=== PATIENT | female | born 1950 ===

== ENCOUNTER 2023-01-24 12:16 | Inpatient (IN) | payer MEDICARE, BC, SELFPAY ==
[2023-01-24 12:30] VITALS: BP 126/89; PULSE 96; RESP 18; TEMP 36.4; O2SAT 98
--- NOTE | 2023-01-24 13:30 | P.HPPS_ITS ---
[facility] Date of Service: 01/24/23 Chief Complaint: F32.9,F41.9 Sources of Information: patient interviewed, chart reviewed and crisis/core team assessment reviewed HPI Subjective Notes: Juarez Warning and Conditional Voluntary Narrative: The patient is a 72-year-old female, , mother of 2 adult children, currently living with her daughter for the last months, retired [employer], with no prior formal psychiatric history referred from the emergency room of [facility] for continuation of care. The patient was rushed to the emergency room since she complained of suicidal ideation by either overdosing or hurting herself with a knife. She was assessed by the crisis team and it seems that she had being in the emergency room at least 3 times in the last month due to home anxiety and dysphoria. She was being medically cleared and transferring to this facility for continuation of treatment. On interview, the patient reported that she have been having conflicts with his daughter, she had been living with her for the last month that she was referred from the emergency room. She is living with her daughter because the last time she was in the emergency room with suicidal ideation and her daughter decided to take her back to her home. She had been complaining of depressed mood, anhedonia, lack of energy, feelings of hopelessness, increased anxiety, crying spells and recently passive suicidal ideation without a clear plan. She adamantly denies mood lability or psychotic symptoms. She has been treated with Remeron and recently with Lexapro but she is unclear when she started taking medications. Apparently, the recent stressor is the conflicts with her daughter, conflicts with her spouse, she stated that her marriage has she has been finished. She feels that she is a burden to her family and she wants to finish it. She reported that she has never been admitted into the hospital and she does not follow psychiatric treatment as an outpatient. Her primary care physician had been feeling some of her medications such as Remeron and Lexapro as per med rec. She has been taking Valium 10 mg p.o. q.h.s. for years. She stated that she stop taking Valium for the last week or so. No evidence of benzodiazepine withdrawal 1 or safety concerns at this moment. The patient was able to contract for safety in the facility, she is open to give us permission to talk with her daughter. Past Psychiatric History: Denies prior psychiatric admissions Medical Evaluation Reviewed: Hospitalist Alicia Pending [facility] Family History: Denies Social History: The patient reported that she was , mother of 2 adult children, she used to work, retired employee of the [employer]. Currently she is living with her daughter. Good social support Substance History: Denies Trauma History: Reports conflict with her Meds/Allergies Allergies Allergies Allergy/AdvReac Type Severity Reaction Status Date / Time poly antibiotics Allergy Unknown Uncoded 07/09/13 00:00 Mental Status Exam Mental Status Exam Patient Appearance: Well Grooomed and Appropriate (On hospital gowns) Patient Orientation: Person and Situation Level of Consciousness: Awake and Appropriate Patient Behavior: Guarded and Passive Mood Description: Withdrawn and Depressed Affect Description: Constricted Patient Cognition Impaired: Yes Ability to Follow Directions: Good Speech Pattern: Clear Hallucinations: None Delusions: Not Present Thought Process: Linear Thought Content: positive for Circumstantial Depressive Symptoms: Diff. Making Decisions, Changes in Appetite, Crying Spells, Significant Weight Loss and Feelings of Worthlessness Judgement: Poor Assessment & Plan Assessment & Plan (1) Major depressive disorder: Status: Acute Code(s): F32.9 - Major depressive disorder, single episode, unspecified Plan The patient is an elderly female with a past history of depression, with 3 recent admissions into the emergency room in the last month for exacerbation of depression and suicidality. She has several family stressors such as living with her daughter for the last month, most likely complex with her who she states is . She complains of depressive symptoms with neurovegetative component and recently with suicidal ideation. She is able to contract for safety in the facility. She denies psychotic symptoms. Plan 1. Gather collateral information. 2. The patient understood juarez warning and she signed conditional voluntary. 3. 5 minutes check for the next 24 hours. 4. Continue with Remeron 15 mg p.o. q.h.s. and restarted Valium 5 mg p.o. q.h.s.. 4. Consult hospitalist for medical clearance. 6. Regular blood work for tomorrow morning. 7. Reassessment with results. Patient educated on: diagnosis and therapeutic strategies Reason for continued inpatient stay Substantial Risk for: inability to function, rapid decompensation and med/psych decompensation Statement Statement: I have reviewed the history and physical and performed a pertinent examination on my patient. No changes have occurred unless specified. If the History and Physical was not performed prior to admission, the Hospitalist's service will be consulted for completing the admission physical. Time Spent With Patient Time: Total time managing care of this patient today __45__ minutes.
[2023-01-24 14:14] VITALS: BMI 19.4
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
--- NOTE | 2023-01-24 17:51 | PC.NURSE ---
Sana ate 100% of lunch and dinner and drank 720cc today.
[2023-01-24 18:00] VITALS: BP 120/92; PULSE 70; RESP 16; TEMP 35.9; O2SAT 97
--- NOTE | 2023-01-24 20:27 | P.CONHOSP_ITS ---
History of Present Illness Data of Consult Service Date: 01/24/23 Primary Care Provider: None Physician HPI Reason for consult: Admission H&P Pt is a 72-year-old female with a PMH significant for?migraines, spinal salome nosis, basal cell carcinoma, breast cancer, paroxysmal AFib s/p DCCV, hx of AVNRT s/p ablation, and dementia who is admitted to [facility] for increasing anxiety and depression with SI by either stabbing self with knife for over week dosing on medications. Medical consult for admission H&P. ?Patient has no acute medical complaints at this time. Only claims of being ?bored.? Denies chest pain/pressure palpitations. No shortness of breath. Denies fever, chills, nausea, vomiting, abdominal pain. CMP reviewed, unremarkable. Review of Systems Review of Systems: Patient has no acute medical complaints at this time Yes all other systems are reviewed and are negative PMFSH Social History Household Members: Children Household Members Other:: Daughter and 2 children and her significant other. Housing: House Do you presently have visiting nurse or other home services: No Patient Tobacco Use Status: Former Tobacco user Quit Date: 1977 Tobacco use type: Cigarette Cigarettes Per Day: 2 Years Smoked: 5 years Smoked in Last 30 Days: No e-Cigarette/Vaping Use: Never Used Patient Interested in Nicotine Replacement: No Patient Given Instructions on How to Stop Smoking: No Second Hand Smoke Exposure: No Use of substances other than those prescribed or required for medical reasons: No Currently Displaying Signs/Symptoms of Drug Intoxication Withdrawal: No Any prior treatment program specific to substance use: No Have you been hit, kicked, punched, or otherwise hurt by someone within the past year? If so, by whom?: No Do you feel safe in your current relationship?: Yes Is there a partner from a previous relationship who is making you feel unsafe now?: No Are you made to feel afraid or neglected: No Druze Healthcare Practices: Patient reads her bible. She is a Faith. Cultural Healthcare Practices: Yoga and Chuy, speed walking. Advance Directives: No Advance Directives Information Provided: No Do you have thoughts of harming others: None Do you have a plan to hurt others: No Plan Recently lost weight without trying: Yes How much weight loss: 14-23 pounds Eating poorly because of decreased appetite: Yes Nutrition screen score: 5 Nutrition Risks: Poor intake 0-25% >4 days Patient : No : No Poor oral hygiene: No Meds Allergies Allergy/AdvReac Type Severity Reaction Status Date / Time poly antibiotics Allergy Unknown Uncoded 07/09/13 00:00 Active Medications: Current Medications Acetaminophen (Acetaminophen 325 Mg Tablet) 650 mg PO Q6H PRN PRN Reason: Headache/Pain Mild Scale (1-3) Al Hydroxide/Mg Hydroxide (Magnesium Hydrox/Alum Hydrox 30 Ml Oral.Susp) 30 ml PO Q6H PRN PRN Reason: Heartburn/Nausea Diazepam (Diazepam 5 Mg Tablet) 5 mg PO BEDTIME SIMIN Flecainide Acetate (Flecainide Acetate 50 Mg Tablet) 50 mg PO BID SIMIN Hydroxyzine HCl (Hydroxyzine Hcl 25 Mg Tablet) 25 mg PO Q6H PRN PRN Reason: Anxiety Magnesium Hydroxide (Milk Of Magnesia 30 Ml Oral.Susp) 30 ml PO DAILY PRN PRN Reason: Constipation Metoprolol Tartrate (Metoprolol Tartrate 25 Mg Tablet) 25 mg PO BID SIMIN; Protocol Mirtazapine (Mirtazapine 15 Mg Tablet) 15 mg PO BEDTIME SIMIN Olanzapine (Olanzapine 5 Mg Tablet) 5 mg PO BEDTIME SIMIN Trazodone HCl (Trazodone Hcl 50 Mg Tablet) 50 mg PO BEDTIME MRX1 PRN PRN Reason: Insomnia Home Medications Medication Instructions Recorded Confirmed Last Taken Type Eliquis 5 mg PO BID blood thinner 01/24/23 01/24/23 Unknown History diazepam 10 mg PO BEDTIME anxiety 01/24/23 01/24/23 Unknown History escitalopram oxalate 20 mg PO DAILY Depression 01/24/23 01/24/23 Unknown History flecainide 50 mg PO Q12H A Fib 01/24/23 01/24/23 Unknown History metoprolol tartrate 12.5 mg PO BID A Fib 01/24/23 01/24/23 Unknown History trazodone 50 mg PO BEDTIME anxiety 01/24/23 01/24/23 Unknown History Physical Exam Vital Signs and Narrative: Vital Signs: Last Vital Signs Temp 97.5 F 01/24/23 12:30 Pulse 96 01/24/23 12:30 Resp 18 01/24/23 12:30 BP 126/89 01/24/23 12:30 Pulse Ox 98 01/24/23 12:30 O2 Del Method Room Air 01/24/23 12:30 BMI result Body Mass Index 19.4 General: AOx3, no acute distress Resp: CTA bilaterally CVS: Irregularly irregular rhythm GI: +BS, NT, no distention Skin: No rash Neuro: Cranial nerves II-XII grossly intact bilaterally. Motor grossly intact bilaterally Extremities: No edema Psych: Appropriate affect Results Labs 01/25/23 07:21 Assessment and Plan (1) Routine history and physical examination of adult: Status: Acute Plan Pt is a 72-year-old female with a PMH significant for?migraines, spinal stenosis, basal cell carcinoma, breast cancer, paroxysmal AFib s/p DCCV, hx of AVNRT s/p ablation, and dementia who is admitted to [facility] for increasing anxiety and depression with SI by either stabbing self with knife for over week dosing on medications. Medical consult for admission H&P. ?Patient has no acute medical complaints at this time. Mood disorder Plan as per Psychiatry Persistent atrial fibrillation Continue Eliquis, metoprolol Hx of AVNRT S/P ablation Continue diltiazem, flecainide Thank you for allowing us to participate in the care of this patient. Signing off at this time. Please let us know if there are any acute complaints or questions. Time Spent With Patient Time: Total time managing care of this patient today ____ minutes.
--- NOTE | 2023-01-24 21:06 | PM.EVENT ---
Event Note Date of Service: 01/24/23 Event Note: Attempted to see pt for admission H&P shortly after 8:00pm but pt sleeping and would prefer to defer H&P until the next day. Will attempt see pt for H&P in tomorrow. Time Spent With Patient Time: Total time managing care of this patient today ____ minutes.
[2023-01-24] MEDS: OLANZapine 5 MG TABLET PO (21:25)
[2023-01-24] MEDS: Metoprolol Tartrate 25 MG TABLET PO (21:25)
[2023-01-24] MEDS: Mirtazapine 15 MG TABLET PO (21:25)
[2023-01-24] MEDS: diazePAM 5 MG TABLET PO (21:25)
[2023-01-24] MEDS: Flecainide Acetate 50 MG TABLET PO (21:26)
[2023-01-24] MEDS: traZODone HCL 50 MG TABLET PO (23:37)
[2023-01-24] MEDS: hydrOXYzine HCL 25 MG TABLET PO (23:38)
[2023-01-25 07:48] LABS: Alanine Aminotransferase 20 U/L (0-31); Albumin Level 3.7 g/dL (3.5-5.0); Alkaline Phosphatase 76 U/L (39-117); Anion Gap 12 (12-20); Aspartate Amino Transferase 20 U/L (5-31); Bilirubin Total 0.5 mg/dL (0.0-1.0); Blood Urea Nitrogen 21 mg/dL (9-16); Calcium 9.3 mg/dL (8.4-10.2); Carbon Dioxide 28 mmol/L (22-29); Chloride 105 mmol/L (96-108); Cholesterol 152 mg/dL; Creatinine Clr Calc Pharmacy 44.2; Estimated Glomerular Filt Rate > 60; Glucose Fasting 119 mg/dL (60-99); HDL Cholesterol 39 mg/dL; LDL Cholesterol Calculated 95 mg/dl; Potassium 4.7 mmol/L (3.3-5.1); Sodium 140 mmol/L (135-145); Total Protein 6.5 g/dL (6.5-8.0); Triglycerides 90 mg/dL
[2023-01-25 08:00] VITALS: BP 112/70; PULSE 67; RESP 18; TEMP 36.8; O2SAT 96
[2023-01-25] MEDS: Flecainide Acetate 50 MG TABLET PO ×2 (08:01→21:05)
[2023-01-25] MEDS: Metoprolol Tartrate 25 MG TABLET PO ×2 (08:01→21:05)
--- NOTE | 2023-01-25 08:23 | HO.PSYCHPN ---
Subjective Subjective Date of Service: 01/25/23 Reason For Visit: F32.9,F41.9 Subjective Notes: Conditional Voluntary Interim History: The nursing staff reported the patient has been fairly well on admission but later on in the afternoon she was confused, stating that her roommate was her sister. On interview the patient was pleasant, dysphoric we discussed options and she agreed increase Remeron up to 30 mg p.o. q.h.s.. She stated that she had a psychotic break last month, most likely due to several medications prescribed before. Mental Status Exam Mental Status Exam Patient Appearance: Well Grooomed Patient Orientation: Person and Situation Level of Consciousness: Awake and Appropriate Patient Behavior: Guarded and Passive Mood Description: Calm Affect Description: Constricted Patient Cognition Impaired: Yes Ability to Follow Directions: Good Speech Pattern: Clear Hallucinations: None Delusions: Not Present Thought Process: Distracted and Linear Thought Content: positive for [place] and positive for Circumstantial Judgement: Fair Diagnostics Vital Signs (24Hr): Vital Signs - 24 hr 01/24/23 12:30 01/24/23 18:00 01/25/23 08:00 Temperature 97.5 F 96.6 F L 98.3 F Pulse Rate 96 70 67 Respiratory Rate 18 16 18 Blood Pressure 126/89 120/92 H 112/70 Pulse Oximetry 98 97 96 Oxygen Delivery Method Room Air Room Air Room Air BMI result Body Mass Index 19.4 Labs 01/25/23 07:21 Labs: Laboratory Results - last 48 hr 01/25/23 07:21 Sodium 140 Potassium 4.7 Chloride 105 Carbon Dioxide 28 Anion Gap 12 BUN 21 H Creatinine 0.85 Estim Creat Clear Calc 44.2 Estimated GFR > 60 Fasting Glucose 119 H Calcium 9.3 Total Bilirubin 0.5 AST 20 ALT 20 Alkaline Phosphatase 76 Total Protein 6.5 Albumin 3.7 Triglycerides 90 Cholesterol 152 LDL Cholesterol, Calc 95 HDL Cholesterol 39 Medications Medications Current Medications Acetaminophen (Acetaminophen 325 Mg Tablet) 650 mg PO Q6H PRN PRN Reason: Headache/Pain Mild Scale (1-3) Al Hydroxide/Mg Hydroxide (Magnesium Hydrox/Alum Hydrox 30 Ml Oral.Susp) 30 ml PO Q6H PRN PRN Reason: Heartburn/Nausea Diazepam (Diazepam 5 Mg Tablet) 5 mg PO BEDTIME SIMIN Last Admin: 01/24/23 21:25 Dose: 5 mg Flecainide Acetate (Flecainide Acetate 50 Mg Tablet) 50 mg PO BID SIMIN Last Admin: 01/25/23 08:01 Dose: 50 mg Hydroxyzine HCl (Hydroxyzine Hcl 25 Mg Tablet) 25 mg PO Q6H PRN PRN Reason: Anxiety Last Admin: 01/24/23 23:38 Dose: 25 mg Magnesium Hydroxide (Milk Of Magnesia 30 Ml Oral.Susp) 30 ml PO DAILY PRN PRN Reason: Constipation Metoprolol Tartrate (Metoprolol Tartrate 25 Mg Tablet) 25 mg PO BID [facility]; Protocol Last Admin: 01/25/23 08:01 Dose: 25 mg Mirtazapine (Mirtazapine 15 Mg Tablet) 15 mg PO BEDTIME SIMIN Last Admin: 01/24/23 21:25 Dose: 15 mg Non-Formulary Medication (Eliquis) 5 mg PO BID SIMIN Olanzapine (Olanzapine 5 Mg Tablet) 5 mg PO BEDTIME SIMIN Last Admin: 01/24/23 21:25 Dose: 5 mg Trazodone HCl (Trazodone Hcl 50 Mg Tablet) 50 mg PO BEDTIME MRX1 PRN PRN Reason: Insomnia Last Admin: 01/24/23 23:37 Dose: 50 mg Allergies Allergies Allergy/AdvReac Type Severity Reaction Status Date / Time poly antibiotics Allergy Unknown Uncoded 07/09/13 00:00 Assessment & Plan Assessment & Plan (1) Major depressive disorder: Status: Acute Code(s): F32.9 - Major depressive disorder, single episode, unspecified Plan The patient is an elderly female with a past history of depression, with 3 recent admissions into the emergency room in the last month for exacerbation of depression and suicidality. She has several family stressors such as living with her daughter for the last month, most likely complex with her who she states is . She complains of depressive symptoms with neurovegetative component and recently with suicidal ideation. She is able to contract for safety in the facility. She denies psychotic symptoms. Plan 1. Gather collateral information. 2. The patient understood mcleod warning and she signed conditional voluntary. 3. 5 minutes check for the next 24 hours. 4. Continue with Remeron 15 mg p.o. q.h.s, we increase Remeron up to 30 mg p.o. q.h.s. on was 12. 5. Keep Valium 5 mg p.o. q.h.s.. 6. Consult hospitalist for medical clearance. 7. Regular blood work for tomorrow morning. 8. Reassessment with results. Reason for continued inpatient stay Substantial Risk for: inability to function, rapid decompensation and med/psych decompensation Time Spent With Patient Time: Total time managing care of this patient today _20___ minutes.
[2023-01-25] MEDS: Apixaban 5 MG TABLET PO ×2 (09:18→21:05)
[2023-01-25 18:00] VITALS: BP 135/89; PULSE 74; RESP 16; TEMP 36.1; O2SAT 99
[2023-01-25] MEDS: Mirtazapine 30 MG TABLET PO (21:04)
[2023-01-25] MEDS: traZODone HCL 50 MG TABLET PO (21:04)
[2023-01-25] MEDS: diazePAM 5 MG TABLET PO (21:04)
[2023-01-25] MEDS: OLANZapine 5 MG TABLET PO (21:04)
[2023-01-25] MEDS: hydrOXYzine HCL 25 MG TABLET PO (21:05)
[2023-01-26 07:56] VITALS: BP 133/81; PULSE 73; RESP 16; TEMP 36.6; O2SAT 98
[2023-01-26] MEDS: Metoprolol Tartrate 25 MG TABLET PO ×2 (07:59→21:54)
[2023-01-26] MEDS: Flecainide Acetate 50 MG TABLET PO ×2 (07:59→21:54)
[2023-01-26] MEDS: Apixaban 5 MG TABLET PO ×2 (07:59→21:54)
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
[2023-01-26] MEDS: polyethylene glycoL 3350 17 GM POWD.PACK PO (16:49)
[2023-01-26 18:00] VITALS: BP 114/80; PULSE 88; RESP 16; TEMP 36.9; O2SAT 97
[2023-01-26] MEDS: OLANZapine 5 MG TABLET PO (21:53)
[2023-01-26] MEDS: diazePAM 5 MG TABLET PO (21:53)
[2023-01-26] MEDS: traZODone HCL 50 MG TABLET PO (21:54)
[2023-01-26] MEDS: Mirtazapine 30 MG TABLET PO (21:54)
[2023-01-27 08:53] VITALS: BP 115/78; PULSE 85; RESP 16; TEMP 37; O2SAT 98
[2023-01-27] MEDS: Apixaban 5 MG TABLET PO ×2 (08:54→20:36)
[2023-01-27] MEDS: Metoprolol Tartrate 25 MG TABLET PO ×2 (08:54→20:36)
[2023-01-27] MEDS: Flecainide Acetate 50 MG TABLET PO ×2 (08:54→20:37)
--- NOTE | 2023-01-27 14:26 | HO.PSYCHPN ---
Subjective Subjective Date of Service: 01/27/23 Reason For Visit: F32.9,F41.9 Subjective Notes: Conditional Voluntary and 3 Day Interim History: The nursing staff reported the patient signed a 3 day notice last Friday. She stated that she was feeling worse with anxiety and she declined p.r.n. medications. She feels abandoned by her family. Yesterday her son visited her. On interview the patient is still dysphoric but she adamantly denies active suicidal ideation. She is aware that she has problems with her daughter and she wants to go with her sister. According to the social studies department chair, her daughter contact her and apparently her healthcare proxy was invoked at the other facility. We were not aware of that. In my opinion, the patient has capacity to take informed decisions. Mental Status Exam Mental Status Exam Patient Appearance: Well Grooomed and Appropriate Patient Orientation: Person and Situation Level of Consciousness: Awake and Appropriate Patient Behavior: Guarded and Passive Mood Description: Withdrawn Affect Description: Constricted Ability to Follow Directions: Good Speech Pattern: Clear Hallucinations: None Delusions: Not Present Thought Process: Distracted and Linear Thought Content: positive for [place] and positive for Circumstantial Judgement: Fair Diagnostics Vital Signs (24Hr): Vital Signs - 24 hr 01/26/23 18:00 01/27/23 08:53 Temperature 98.4 F 98.6 F Pulse Rate 88 85 Respiratory Rate 16 16 Blood Pressure 114/80 115/78 Pulse Oximetry 97 98 Oxygen Delivery Method Room Air Room Air BMI result Body Mass Index 19.4 Labs 01/25/23 07:21 Medications Medications Current Medications Acetaminophen (Acetaminophen 325 Mg Tablet) 650 mg PO Q6H PRN PRN Reason: Headache/Pain Mild Scale (1-3) Al Hydroxide/Mg Hydroxide (Magnesium Hydrox/Alum Hydrox 30 Ml Oral.Susp) 30 ml PO Q6H PRN PRN Reason: Heartburn/Nausea Apixaban (Apixaban 5 Mg Tablet) 5 mg PO BID [facility] Last Admin: 01/27/23 08:54 Dose: 5 mg Diazepam (Diazepam 5 Mg Tablet) 5 mg PO BEDTIME [facility] Last Admin: 01/26/23 21:53 Dose: 5 mg Flecainide Acetate (Flecainide Acetate 50 Mg Tablet) 50 mg PO BID [facility] Last Admin: 01/27/23 08:54 Dose: 50 mg Hydroxyzine HCl (Hydroxyzine Hcl 25 Mg Tablet) 25 mg PO Q6H PRN PRN Reason: Anxiety Last Admin: 01/25/23 21:05 Dose: 25 mg Magnesium Hydroxide (Milk Of Magnesia 30 Ml Oral.Susp) 30 ml PO DAILY PRN PRN Reason: Constipation Metoprolol Tartrate (Metoprolol Tartrate 25 Mg Tablet) 25 mg PO BID [facility]; Protocol Last Admin: 01/27/23 08:54 Dose: 25 mg Mirtazapine (Mirtazapine 30 Mg Tablet) 30 mg PO BEDTIME [facility] Last Admin: 01/26/23 21:54 Dose: 30 mg Olanzapine (Olanzapine 5 Mg Tablet) 5 mg PO BEDTIME [facility] Last Admin: 01/26/23 21:53 Dose: 5 mg Polyethylene Glycol (Polyethylene Glycol 3350 17 Gm Powd.Pack) 17 gm PO DAILY PRN PRN Reason: Constipation Last Admin: 01/26/23 16:49 Dose: 17 gm Trazodone HCl (Trazodone Hcl 50 Mg Tablet) 50 mg PO BEDTIME MRX1 PRN PRN Reason: Insomnia Last Admin: 01/26/23 21:54 Dose: 50 mg Allergies Allergies Allergy/AdvReac Type Severity Reaction Status Date / Time poly antibiotics Allergy Unknown Uncoded 07/09/13 00:00 Assessment & Plan Assessment & Plan (1) Routine history and physical examination of adult: Status: Acute Code(s): Z00.00 - Encounter for general adult medical examination without abnormal findings Plan Pt is a 72-year-old female with a PMH significant for?migraines, spinal stenosis, basal cell carcinoma, breast cancer, paroxysmal AFib s/p DCCV, hx of AVNRT s/p ablation, and dementia who is admitted to [facility] for increasing anxiety and depression with SI by either stabbing self with knife for over week dosing on medications. Medical consult for admission H&P. ?Patient has no acute medical complaints at this time. Mood disorder Plan as per Psychiatry Persistent atrial fibrillation Continue Eliquis, metoprolol Hx of AVNRT S/P ablation Continue diltiazem, flecainide Psychiatry-plan 1. Gather collateral information. We will try to contact her daughter who is very involved in her care. 2. Continue with Remeron 30 mg p.o. q.h.s. to target depression. 3. Continue with regular medications. 4. Fifteen minutes check. Reason for continued inpatient stay Substantial Risk for: inability to function, rapid decompensation and med/psych decompensation Time Spent With Patient Time: Total time managing care of this patient today __20__ minutes.
[2023-01-27 18:00] VITALS: BP 108/58; PULSE 70; RESP 16; TEMP 36.6; O2SAT 98
[2023-01-27] MEDS: Mirtazapine 30 MG TABLET PO (20:35)
[2023-01-27] MEDS: traZODone HCL 50 MG TABLET PO (20:36)
[2023-01-27] MEDS: diazePAM 5 MG TABLET PO (20:37)
[2023-01-27] MEDS: OLANZapine 5 MG TABLET PO (20:38)
[2023-01-28 07:46] VITALS: BP 163/80; PULSE 73; RESP 15; TEMP 36.9; O2SAT 98
[2023-01-28] MEDS: Metoprolol Tartrate 25 MG TABLET PO ×2 (07:47→20:19)
[2023-01-28] MEDS: Flecainide Acetate 50 MG TABLET PO ×2 (07:47→20:19)
[2023-01-28] MEDS: Apixaban 5 MG TABLET PO ×2 (07:47→20:20)
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
[2023-01-28 19:40] VITALS: BP 113/67; PULSE 77; RESP 20; TEMP 36.7; O2SAT 97
[2023-01-28] MEDS: Mirtazapine 30 MG TABLET PO (20:19)
[2023-01-28] MEDS: Donepezil HCl 5 MG TABLET PO (20:19)
[2023-01-28] MEDS: OLANZapine 5 MG TABLET PO (20:19)
[2023-01-28] MEDS: diazePAM 5 MG TABLET PO (20:19)
[2023-01-29 08:05] VITALS: BP 114/68; PULSE 73; RESP 18; TEMP 36.1; O2SAT 100
[2023-01-29] MEDS: Apixaban 5 MG TABLET PO ×2 (08:42→20:32)
[2023-01-29] MEDS: Flecainide Acetate 50 MG TABLET PO ×2 (08:42→20:33)
[2023-01-29] MEDS: Metoprolol Tartrate 25 MG TABLET PO ×2 (08:42→20:33)
--- NOTE | 2023-01-29 14:22 | P.PNPSI_ITS ---
Subjective Subjective Date of Service: 01/29/23 Reason For Visit: F32.9,F41.9 Subjective Notes: Conditional Voluntary and 3 Day Interim History: The nursing staff reported the patient had been compliant with medications, she denies suicidal ideation. She was assessed also by the child welfare social worker and she adamantly denies suicidal ideation. Today we had a family meeting with her daughter, and sister and they were very concerned. I explained her that over the hospitalization she did not have episodes of delirium or psychosis and she was mostly depressed and agreed to increased Remeron. Discharge planning was discussed. On interview the patient adamantly denies suicidality and she is able to contract for safety. Mental Status Exam Mental Status Exam Patient Appearance: Well Grooomed and Appropriate Patient Orientation: Person and Situation Level of Consciousness: Awake and Appropriate Patient Behavior: Guarded and Passive Mood Description: Calm Affect Description: Constricted Patient Cognition Impaired: Yes Ability to Follow Directions: Good Speech Pattern: Clear Hallucinations: None Delusions: Not Present Thought Process: Linear Thought Content: positive for Goal Oriented Judgement: Fair Diagnostics Vital Signs (24Hr): Vital Signs - 24 hr 01/28/23 19:40 01/29/23 08:05 Temperature 98.1 F 96.9 F Pulse Rate 77 73 Respiratory Rate 20 18 Blood Pressure 113/67 114/68 Pulse Oximetry 97 100 Oxygen Delivery Method Room Air Room Air BMI result Body Mass Index 19.4 Labs 01/25/23 07:21 Medications Medications Current Medications Acetaminophen (Acetaminophen 325 Mg Tablet) 650 mg PO Q6H PRN PRN Reason: Headache/Pain Mild Scale (1-3) Al Hydroxide/Mg Hydroxide (Magnesium Hydrox/Alum Hydrox 30 Ml Oral.Susp) 30 ml PO Q6H PRN PRN Reason: Heartburn/Nausea Apixaban (Apixaban 5 Mg Tablet) 5 mg PO BID [facility] Last Admin: 01/29/23 08:42 Dose: 5 mg Diazepam (Diazepam 5 Mg Tablet) 5 mg PO BEDTIME [facility] Last Admin: 01/28/23 20:19 Dose: 5 mg Donepezil HCl (Donepezil Hcl 5 Mg Tablet) 5 mg PO BEDTIME [facility] Last Admin: 01/28/23 20:19 Dose: 5 mg Flecainide Acetate (Flecainide Acetate 50 Mg Tablet) 50 mg PO BID [facility] Last Admin: 01/29/23 08:42 Dose: 50 mg Hydroxyzine HCl (Hydroxyzine Hcl 25 Mg Tablet) 25 mg PO Q6H PRN PRN Reason: Anxiety Last Admin: 01/25/23 21:05 Dose: 25 mg Magnesium Hydroxide (Milk Of Magnesia 30 Ml Oral.Susp) 30 ml PO DAILY PRN PRN Reason: Constipation Metoprolol Tartrate (Metoprolol Tartrate 25 Mg Tablet) 25 mg PO BID [facility]; Protocol Last Admin: 01/29/23 08:42 Dose: 25 mg Mirtazapine (Mirtazapine 30 Mg Tablet) 30 mg PO BEDTIME [facility] Last Admin: 01/28/23 20:19 Dose: 30 mg Olanzapine (Olanzapine 5 Mg Tablet) 5 mg PO BEDTIME [facility] Last Admin: 01/28/23 20:19 Dose: 5 mg Polyethylene Glycol (Polyethylene Glycol 3350 17 Gm Powd.Pack) 17 gm PO DAILY PRN PRN Reason: Constipation Last Admin: 01/26/23 16:49 Dose: 17 gm Trazodone HCl (Trazodone Hcl 50 Mg Tablet) 50 mg PO BEDTIME MRX1 PRN PRN Reason: Insomnia Last Admin: 01/27/23 20:36 Dose: 50 mg Allergies Allergies Allergy/AdvReac Type Severity Reaction Status Date / Time poly antibiotics Allergy Unknown Uncoded 07/09/13 00:00 Assessment & Plan Assessment & Plan (1) Routine history and physical examination of adult: Status: Acute Code(s): Z00.00 - Encounter for general adult medical examination without abnormal findings (2) Neurodegenerative cognitive impairment: Status: Acute Code(s): G31.9 - Degenerative disease of nervous system, unspecified (3) Major depressive disorder: Status: Acute Code(s): F32.9 - Major depressive disorder, single episode, unspecified Plan Pt is a 72-year-old female with a PMH significant for?migraines, spinal stenosis, basal cell carcinoma, breast cancer, paroxysmal AFib s/p DCCV, hx of AVNRT s/p ablation, and dementia who is admitted to [facility] for increasing anxiety and depression with SI by either stabbing self with knife for over week dosing on medications. Medical consult for admission H&P. ?Patient has no acute medical complaints at this time. Mood disorder Plan as per Psychiatry Persistent atrial fibrillation Continue Eliquis, metoprolol Hx of AVNRT S/P ablation Continue diltiazem, flecainide Psychiatry-plan 1. Gather collateral information. We will try to contact her daughter who is very involved in her care. 2. Continue with Remeron 30 mg p.o. q.h.s. to target depression. 3. Continue with regular medications. 4. Fifteen minutes check. 5. Start Aricept 5 mg p.o. q.h.s. to target dementia 6. Discharge tomorrow Reason for continued inpatient stay Substantial Risk for: inability to function, rapid decompensation and med/psych decompensation Time Spent With Patient Time: Total time managing care of this patient today __30__ minutes.
--- NOTE | 2023-01-29 14:35 | P.DS_ITS ---
DS: Providers Provider Date of Service: 01/29/23 Date of admission: 01/24/23 12:16 Date of discharge: 01/30/23 Primary care physician: None Physician Consults: 01/24/23 12:33 Consult to Hospitalist Routine Comment: Consulting Provider: Hospitalist Reason For Exam: Direct admission DS: Diagnosis Discharge Diagnosis (1) Routine history and physical examination of adult: Status: Acute (2) Neurodegenerative cognitive impairment: Status: Acute (3) Major depressive disorder: Status: Acute DS: Medications Discharge Medications Home Medications: Home Medications Medication Instructions Recorded Confirmed Eliquis 5 mg PO BID blood thinner 01/24/23 01/24/23 diazepam 10 mg PO BEDTIME anxiety 01/24/23 01/24/23 escitalopram oxalate 20 mg PO DAILY Depression 01/24/23 01/24/23 flecainide 50 mg PO Q12H A Fib 01/24/23 01/24/23 metoprolol tartrate 12.5 mg PO BID A Fib 01/24/23 01/24/23 trazodone 50 mg PO BEDTIME anxiety 01/24/23 01/24/23 Mental Status Exam Mental Status Exam Patient Appearance: Well Grooomed and Appropriate Patient Orientation: Person, Place and Situation Level of Consciousness: Awake and Appropriate Patient Behavior: Guarded and Passive Mood Description: Withdrawn Affect Description: Constricted Patient Cognition Impaired: Yes Ability to Follow Directions: Good Speech Pattern: Clear Hallucinations: None Delusions: Not Present Thought Process: Distracted Thought Content: positive for Circumstantial Judgement: Fair Data Data Completed and Pending Completed studies during hospitalization [Text1]: 01/25/23 07:21 Sodium 140 Potassium 4.7 Chloride 105 Carbon Dioxide 28 Anion Gap 12 BUN 21 H Creatinine 0.85 Estim Creat Clear Calc 44.2 Estimated GFR > 60 Fasting Glucose 119 H Calcium 9.3 Total Bilirubin 0.5 AST 20 ALT 20 Alkaline Phosphatase 76 Total Protein 6.5 Albumin 3.7 Triglycerides 90 Cholesterol 152 LDL Cholesterol, Calc 95 HDL Cholesterol 39 DS: Summary Hospital Course Hospital Course: The patient is a 72-year-old female, , mother of adult children, with a prior history of delirium in December when she was started on Zyprexa, admitted to the emergency room after she disclosed suicidal ideation next survey shell of depressive symptoms in the context of several psychosocial stressors and conflicts with the family. Please see the HPI for further details on admission. On admission, we review her medications, we decided not to continue Lexapro that was already stopped at [facility] and we decided to increase Remeron up to 30 mg p.o. q.h.s.. We kept Zyprexa 5 mg p.o. q.h.s. since the patient had a past recent history of delirium and psychosis in the context of UTI in December this year. While she was in the unit, she did not presented with any episode of sundowning or cognitive impairment. The patient was able to participate in some groups, she was pleasant cooperative and she wanted to leave the hospital as soon as possible so she signed a 3 day notice. We did a family meeting and apparently there were several stressors in the family, there is marital conflict and her wants her back but she wants to divorce. Also, the daughter and her sister reported that in the last month she had been more irritable. We did a cognitive testing while she was in the unit and she scored 20/30 on the [place] and in the [place]ander test 5.0. We decided to start a low dose of Aricept to target dementia. The patient adamantly denies suicidal ideation she was able to contract for safety and we had a family meeting while she compromised to contract for safety and continue treatment as an outpatient. Since there were no active safety concerns she was discharged to the care of her family. Time spent discussing smoking cessation with patient: 3 to 10 minutes Status at Discharge Functional status at discharge: independent ambulation Overall status at discharge: patient is back to baseline Time Spent with Patient Time attestation: Total time managing care of this patient today _30___ minutes. Time spent: Less than 30 minutes Discharge Plan Discharge Anticipated Discharge Date/Time: 01/30/23 14:00 Patient Disposition: Home, Self-Care Discharge Diagnosis: Major depressive disorder recurrent episode Neuro cognitive impairment Referrals: Dr Adams [facility] [Other] - [facility] [Other] - 01/31/23 10:30 am (You are scheduled for tour of day program on 01/31/23 at 10:30am. Once there you will complete application and they will review day program, cost, and admission process. ) [facility] [Other] - 03/12/23 11:00 am (Your first appointment for psychiatry is for 03/12/23 at 11am. The appointment is with Blanquita Rosa NP. You are on waitlist for therapy and request has been made to escalate to agency supervisor instrument repair for sooner appointment.) Discharge Medications: New donepezil 5 mg Tablet 5 mg PO BEDTIME Qty: 30 1RF flecainide 50 mg Tablet 50 mg PO BID Qty: 60 1RF metoprolol tartrate 25 mg Tablet 25 mg PO BID 30 Days Qty: 60 1RF Protocol: Hold for SBP/HR < HOLD for SBP < : 90 HOLD for HR < : 60 diazepam 2 mg Tablet 5 mg PO BEDTIME 30 Days Qty: 30 1RF hydroxyzine HCl 25 mg Tablet 25 mg PO Q6H PRN (Reason: Anxiety) 30 Days Qty: 30 1RF mirtazapine 30 mg Tablet 30 mg PO BEDTIME 30 Days Qty: 30 1RF olanzapine 5 mg Tablet 5 mg PO BEDTIME 30 Days Qty: 30 1RF trazodone 50 mg Tablet 50 mg PO BEDTIME MRX1 PRN (Reason: Insomnia) 30 Days Qty: 30 1RF polyethylene glycol 3350 17 gram Powder In Packet 17 g PO DAILY PRN (Reason: Constipation) 30 Days Qty: 30 1RF donepezil [Aricept] 5 mg tablet 5 mg PO BEDTIME Qty: 30 1RF Eliquis 5 mg tablet 5 mg PO BID Qty: 60 1RF mirtazapine [Remeron] 30 mg tablet 30 mg PO BEDTIME Qty: 30 1RF flecainide 50 mg tablet 50 mg PO Q12H Qty: 60 1RF atenolol 25 mg tablet 25 mg PO BID Qty: 60 1RF hydroxyzine pamoate 25 mg capsule 25 mg PO BID PRN (Reason: anxiety) Qty: 30 1RF olanzapine [Zyprexa] 5 mg tablet 5 mg PO BEDTIME Qty: 30 1RF polyethylene glycol 3350 [Miralax] 17 gram/dose powder 17 g PO DAILY PRN (Reason: constipation) Qty: 119 0RF trazodone 50 mg tablet 50 mg PO BEDTIME PRN (Reason: insomnia) Qty: 30 1RF diazepam [Valium] 5 mg tablet 5 mg PO BEDTIME Qty: 30 1RF Continued Eliquis tablet 5 mg PO BID 30 Days Qty: 60 1RF Discontinued diazepam tablet 10 mg PO BEDTIME trazodone tablet 50 mg PO BEDTIME metoprolol tartrate tablet 12.5 mg PO BID flecainide tablet 50 mg PO Q12H escitalopram oxalate tablet 20 mg PO DAILY Patient Comments: Last picked up from pharmacy in September. Discharge Orders: Discharge Order (Routine); Ordered 01/30/23 Ordered By: Naveen Lane Diet: Advance to usual diet Activity on Discharge: As tolerated Stand Alone Forms: Patient Portal Discharge page Care Plan Goals: Care plan goals achieved in this admission Health Concerns: Continue treatment with primary care physician Plan of Treatment: Continue medication management by outpatient psychiatric provider and psychotherapy Assessment: Elderly female with a past history of delirium in December with neuro cognitive impairment mild and depression admitted for suicidal ideation in the context of several psychosocial stressors. The patient was treated with an increased dose of Remeron, added Aricept for cognition and so far no safety concerns at this moment, ready to be discharged in the community.
[2023-01-29 18:00] VITALS: BP 128/69; PULSE 81; RESP 18; TEMP 36.6; O2SAT 98
[2023-01-29] MEDS: hydrOXYzine HCL 25 MG TABLET PO (20:32)
[2023-01-29] MEDS: OLANZapine 5 MG TABLET PO (20:32)
[2023-01-29] MEDS: diazePAM 5 MG TABLET PO (20:32)
[2023-01-29] MEDS: Donepezil HCl 5 MG TABLET PO (20:33)
[2023-01-29] MEDS: traZODone HCL 50 MG TABLET PO (20:33)
[2023-01-29] MEDS: Mirtazapine 30 MG TABLET PO (20:34)
[2023-01-30 08:11] VITALS: BP 148/64; PULSE 80; RESP 16; TEMP 36.7; O2SAT 99
[2023-01-30] MEDS: Apixaban 5 MG TABLET PO (08:12)
[2023-01-30] MEDS: Metoprolol Tartrate 25 MG TABLET PO (08:12)
[2023-01-30] MEDS: Flecainide Acetate 50 MG TABLET PO (08:12)
== END 2023-01-30 11:15 | disposition home or self-care (01) | DRG 885 ==
PROVIDERS: Admitting Provider Psychiatry & Neurology Psychiatry; Visit Provider Psychiatry & Neurology Psychiatry
DX: F33.9 Major depressive disorder, recurrent, unspecified (principal); I48.19 Other persistent atrial fibrillation; R45.851 Suicidal ideations; F06.70 Mild neurocognitive disorder due to known physiological condition without behavioral disturbance; Z87.891 Personal history of nicotine dependence; Z79.01 Long term (current) use of anticoagulants; Z79.899 Other long term (current) drug therapy
CPT/HCPCS: 36415; 80053; 80061

== ENCOUNTER → 2023-01-24 12:16 | Outpatient (BNV) | payer MEDICARE, BC, SELFPAY | PROVIDERS: Admitting Provider Psychiatry & Neurology Psychiatry; Visit Provider Psychiatry & Neurology Psychiatry | DX: F33.2 Major depressive disorder, recurrent severe without psychotic features (principal); G31.9 Degenerative disease of nervous system, unspecified | CPT/HCPCS: 90792; 99231; 99232; 99238 ==

== ENCOUNTER → 2023-01-24 12:16 | Outpatient (BNV) | payer BC, MEDICARE, SELFPAY | PROVIDERS: Admitting Provider Psychiatry & Neurology Psychiatry; Visit Provider Student in an Organized Health Care Education/Training Program | DX: Z02.2 Encounter for examination for admission to residential institution (principal) | CPT/HCPCS: 99429; 99499 ==